=== PATIENT | female | born 1990 | race Caucasian/White ===

== ENCOUNTER 2016-06-04 07:37 | Emergency (ER) | payer OTHER ==
--- NOTE | 2016-06-04 09:55 | DIAGNOSTIC IMAGING REPORT ---
PROCEDURE: CT ABDOMEN/PELVIS W/O CONTRAST INDICATION: FLANK PAIN TECHNIQUE: Noncontrast axial images with sagittal and coronal reformations. COMPARISON: Compared CT abdomen and pelvis on 04/11/2015. FINDINGS: ABDOMEN: Mild left hydronephrosis and hydroureter, no evidence of obstructing calculus. Right kidney and ureter are normal. and ureters are normal. Moderate stool throughout the colon. Small bowel pattern is normal. Appendix appears normal. Cholecystectomy (surgical clips). Liver, spleen, pancreas, and aorta are normal. PELVIS: Moderate stool in the rectum and sigmoid colon. Uterus and adnexal structures are normal. No evidence of free fluid. IMPRESSION: 1. There is mild left hydronephrosis and hydroureter, but no evidence of obstructing calculus. Consider passed stone/calculus. 2. Moderate stool throughout the colon. Consider obstipation. 3. Status post cholecystectomy. 4. Findings discussed with Dr. Pablo Briones. All CT scans at this facility use dose modulation, iterative reconstruction, and/or weight-based dosing when appropriate to reduce radiation dose to as low as reasonably achievable.
--- NOTE | 2016-06-04 11:06 | ED ORDER SUMMARY ---
..... Patient: ELIE HARGROVE OrderSheet [facility] VisitID: [id number] [place] [address] 25y, F Registration Date/Time: 06/04/2016 ORDER SHEET Weight: 60.7 kg (stated) Allergies: Adhesive Tape GENERAL ORDERS: CBC w Diff Urgent (08:03 06/04/2016 Lety DAS) (8:06 DMaziarka R.N.) CMP Urgent (08:06/04/2016 Lety DAS) (8:06 DMaziarka R.N.) Amylase Urgent (08:06/04/2016 Lety DAS) (8:06 DMaziarka R.N.) Lipase Urgent (08:06/04/2016 Lety DAS) (8:06 DMaziarka R.N.) UA-Culture if indicated Urgent (08:06/04/2016 Lety DAS) (8:06 DMaziarka R.N.) Urine Urgent (08:03 06/04/2016 Lety DAS) (8:06 DMaziarka R.N.) Urine Drug Screen Urgent (08:03 06/04/2016 Lety DAS) (8:06 DMaziarka R.N.) CRP Urgent (08:06 06/04/2016 Lety DAS) (8:19 DMaziarka R.N.) PCT (Procalcitonin) Urgent (08:06 06/04/2016 Lety DAS) (8:19 DMaziarka R.N.) CT Abd/Pel wo Cont Urgent (08:07 06/04/2016 Lety DAS) (Ack 8:32 RKaruga) (10:03 DMaziarka R.N.) MEDICATION ORDERS: IV FLUIDS: IV NS : initial bolus none -, then 500 mL/hr for 4h (NOW); Routine (08:02 06/04/2016 Lety DAS) (8:05 DMaziarka R.N.) Toradol IV 30 mg (NOW) (08:06 06/04/2016 Lety DAS) (8:20 DMaziarka R.N.) Ativan IV 0.5 mg (NOW) (08:06 06/04/2016 Lety DAS) (8:20 DMaziarka R.N.) Zofran IV 4 mg (NOW) (08:07 06/04/2016 Lety DAS) (8:21 DMaziarka R.N.) Morphine IV 4 mg (once now. May repeat in 15 mintues for pain > 5/10 for total of 8 mg) (09:33 06/04/2016 Chang Mccarty) (Ack 10:04 DMaziarka R.N.) (10:10 DMaziarka R.N.) Ceftriaxone IV 1 gm/50mL (NOW) (10:28 06/04/2016 Chang Mccarty) (10:33 DMaziarka R.N.) ORDER SHEET NOTES: [Electronically signed by Zandra Atkins R.N. (11:31 06/04/2016)] [Electronically signed by Pablo Briones Dr. (09:34 06/05/2016)] [Electronically locked/signed by Zandra Atkins R.N. (11:31 06/04/2016)]
--- NOTE | 2016-06-04 11:06 | ED ORDER SUMMARY ---
..... Patient: ELIE HARGROVE OrderSheet [facility] VisitID: [id number] [place] [address] 25y, F Registration Date/Time: 06/04/2016 ORDER SHEET Weight: 60.7 kg (stated) Allergies: Adhesive Tape GENERAL ORDERS: CBC w Diff Urgent (08:03 06/04/2016 Lety DAS) (8:06 DMaziarka R.N.) CMP Urgent (08:06/04/2016 Lety DAS) (8:06 DMaziarka R.N.) Amylase Urgent (08:06/04/2016 Lety DAS) (8:06 DMaziarka R.N.) Lipase Urgent (08:06/04/2016 Lety DAS) (8:06 DMaziarka R.N.) UA-Culture if indicated Urgent (08:06/04/2016 Lety DAS) (8:06 DMaziarka R.N.) Urine Urgent (08:03 06/04/2016 Lety DAS) (8:06 DMaziarka R.N.) Urine Drug Screen Urgent (08:03 06/04/2016 Lety DAS) (8:06 DMaziarka R.N.) CRP Urgent (08:06 06/04/2016 Lety DAS) (8:19 DMaziarka R.N.) PCT (Procalcitonin) Urgent (08:06 06/04/2016 Lety DAS) (8:19 DMaziarka R.N.) CT Abd/Pel wo Cont Urgent (08:07 06/04/2016 Lety DAS) (Ack 8:32 RKaruga) (10:03 DMaziarka R.N.) MEDICATION ORDERS: IV FLUIDS: IV NS : initial bolus none -, then 500 mL/hr for 4h (NOW); Routine (08:02 06/04/2016 Lety DAS) (8:05 DMaziarka R.N.) Toradol IV 30 mg (NOW) (08:06 06/04/2016 Lety DAS) (8:20 DMaziarka R.N.) Ativan IV 0.5 mg (NOW) (08:06 06/04/2016 Lety DAS) (8:20 DMaziarka R.N.) Zofran IV 4 mg (NOW) (08:07 06/04/2016 Lety DAS) (8:21 DMaziarka R.N.) Morphine IV 4 mg (once now. May repeat in 15 mintues for pain > 5/10 for total of 8 mg) (09:33 06/04/2016 Chang Mccarty) (Ack 10:04 DMaziarka R.N.) (10:10 DMaziarka R.N.) Ceftriaxone IV 1 gm/50mL (NOW) (10:28 06/04/2016 Chang Mccarty) (10:33 DMaziarka R.N.) ORDER SHEET NOTES: [Electronically signed by Zandra Atkins R.N. (11:31 06/04/2016)] [Electronically signed by Pablo Briones Dr. (09:34 06/05/2016)] [Electronically locked/signed by Zandra Atkins R.N. (11:31 06/04/2016)]
--- NOTE | 2016-06-04 11:06 | ED NURSING NOTES ---
Clinical Report - Nurses [facility] [address] [place] [address] 06/04/2016 7:38 Patient: ELIE HARGROVE TRIAGE Triage time 07:45. Acuity: LEVEL 3. Chief Complaint: ABDOMINAL PAIN. Alert. No acute distress. SEPSIS SCREEN: Sepsis Screen. Infection suspected/documented. Heart rate greater than 90 and respiratory rate greater than 20. --07:55 Luna Lopes R.N. 07:48 06/04/16. BP: 118/80. HR: 92. RR: 24. O2 saturation: 99%. Temp: 98.0 F. Pain level now 11/13. --07:55 Luna Lopes R.N. Weight: 60.7 kg stated. Height/Length: 64 inches Per Patient. BMI: 23. --07:50 Luna Lopes R.N. Medications Dextroamphetamine Sulfate Oral (Tablet 10 mg) 1 tablet, BID . Imitrex Oral, PRN, last dose 0800 (n relief ). Linzess Oral 1 tab prn (for constipation ). Methocarbamol Oral 500 mg, 3x a day as needed, last dose 1 week ago. SEROquel Oral 200 mg, at bedtime. --07:52 Luna Lopes R.N. Allergies Adhesive Tape. --07:52 Luna Lopes R.N. History Arrived by private vehicle. Primary physician (ck). ( left lower back and left lower abd pain. Described as constant. States pain worsens upon bending over. States she has some frequency, burning and pain with urination). This started yesterday. 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 PAST MEDICAL HX: Last normal menstrual period- . 3. Denies current . SOCIAL HX: Heavy tobacco smoker (cigarette)- 1 pack per day. Occasional alcohol use. History of drug use: marijuana. ABUSE ASSESSMENT: Abuse assessment: The patient was asked "Do you feel safe in your home?". No report of abuse. FALL RISK ASSESSMENT: Fall risk assessment completed. No fall risk identified. NUTRITIONAL RISK ASSESSMENT: The nutritional risk assessment revealed no deficiencies. FUNCTIONAL ASSESSMENT: Functional assessment: no impairments noted. LEARNING NEEDS ASSESSMENT: The learning needs assessment revealed no barriers. SKIN INTEGRITY ASSESSMENT: Skin integrity risk assessment completed. No skin integrity risk identified. --07:55 Luna Lopes R.N. PROBLEMS: Constipation [Active]. --07:53 Luna Lopes R.N. UTI - Urinary Tract Infection. Diarrhea. Back Pain. Pharyngitis. URI. COPD - Chronic Obstructive Pulmonary Disease. Viral Disease. Pyelonephritis. Ureterolithiasis. Umbilical Hernia. Gallstone(s). Dental Pain. Headache. Abdominal Pain. Anxiety Reaction. Immunizations. Discomfort of . Active Labor. . --07:53 Luna Lopes R.N. ADDITIONAL SURGERIES: Cholecystectomy. Inguinal Hernia Repair. --07:53 Luna Lopes R.N. Interventions ID band on patient. To treatment room. --07:55 Luna Lopes R.N. PHYSICAL ASSESSMENT 07:55 06/04/16. Ambulatory to room. GENERAL / NEURO / PSYCH: Alert. Oriented X 4. Appears in pain and anxious. HEENT: Mucous membranes are pink. RESPIRATORY: Respirations not labored. CVS: Capillary refill less than 2 seconds. GI / : Abdomen soft. Abdominal tenderness in the left lower quadrant and lower abdomen. SKIN: Skin is warm and dry. --07:55 Luna Lopes R.N. NURSING PROGRESS NOTES 07:56 06/04/2016 Site #1 started via IV in the left forearm with an 18g angiocath, with aseptic technique and good blood return; one attempt. Blood drawn: rainbow set. Labeled in the presence of the patient and sent to the lab. Saline lock flushed with 10 mL saline. --07:56 Luna Lopes R.N. The plan of care for this patient has been created. Patient gowned. Head of bed elevated. Patient ID band checked for patient name and birthdate: patient confirmed. Instructions provided to collect clean catch urine and patient verbalized understanding. Clean catch urine collected with return of yellow-colored cloudy urine; sample sent to lab for urinalysis and culture. Specimen labeled in the presence of the patient. Call light placed in reach. Bed placed in lowest position. Brakes of bed on. Patient ready for evaluation- chart flagged. --07:57 Luna Lopes R.N. 08:05 06/04/2016 Started bag #1 1000 mL IV Fluids IV NS (Saline); at 500 mL/hr over 4 hour(s) via site #1 via IV pump. Allergies verified and confirmed 5 rights. IV patency established. IV site checked: no pain, redness, or swelling. IV flushed thoroughly pre- and post-medication administration. --08:05 Zandra Atkins R.N. 08:15 06/04/2016 Toradol IVP 30 mg given over 2 minute(s) via site #1. Allergies verified and confirmed 5 rights. IV patency established. IV site checked: no pain, redness, or swelling. IV flushed thoroughly pre- and post-medication administration. IVP given by RN. --08:20 Zandra Atkins R.N. 08:20 06/04/2016 Ativan (LORazepam) IVP 0.5 mg given over 2 minute(s) via site #1. Allergies verified, confirmed 5 rights and sedative warning given to the patient. IV patency established. IV site checked: no pain, redness, or swelling. IV flushed thoroughly pre- and post-medication administration. IVP given by RN. --08:20 Zandra Atkins R.N. 08:21 06/04/2016 Zofran (Ondansetron HCl) IVP 4 mg given over 2 minute(s) via site #1. Allergies verified and confirmed 5 rights. IV patency established. IV site checked: no pain, redness, or swelling. IV flushed thoroughly pre- and post-medication administration. IVP given by RN. --08:21 Zandra Atkins R.N. The patient is sleeping. --08:53 Zandra Atkins R.N. 10:10 06/04/2016 Morphine IVP 4 mg given over 2 minute(s) via site #1. Allergies verified, confirmed 5 rights and sedative warning given to the patient. IV patency established. IV site checked: no pain, redness, or swelling. IV flushed thoroughly pre- and post-medication administration. IVP given by RN. --10:10 Zandra Atkins R.N. 10:10 06/04/16. BP: 110/66. HR: 74. RR: 16. O2 saturation: 97%. Pain level now 11/13. --10:11 Zandra Atkins R.N. 10:33 06/04/2016 Started 1 gm of Ceftriaxone IVPB in bag #1 50 mL; at 200 mL/hr over 15 minute(s) via site #1 via IV pump. Allergies verified and confirmed 5 rights. IV patency established. IV site checked: no pain, redness, or swelling. IV flushed thoroughly pre- and post-medication administration. --10:33 Zandra Atkins R.N. DISPOSITION / DISCHARGE Departure time: 11:29. Condition at departure: improved. No learning barriers present. Discharge instructions provided and reviewed with the patient. Patient verbalized understanding. Written instructions provided in Bengali. The patient was discharged home and accompanied by folder taper operator. She left the Emergency Department ambulatory and via private vehicle. 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 --11:29 Zandra Atkins R.N. 11:28 06/04/16. BP: 122/72. HR: 84. RR: 16. O2 saturation: 98%. Pain level now 08/14. --11:29 Zandra Atkins R.N. Locked/Released at 06/04/2016 11:31 by Zandra Atkins R.N.
--- NOTE | 2016-06-04 11:06 | ED CLINICAL REPORT ---
Clinical Report - Physicians/Mid Levels [facility] [address] [place] [address] 06/04/2016 7:38 Patient: ELIE HARGROVE Time Seen: 08:01 Jun 04 2016. Arrived- By private vehicle. Historian- patient. HISTORY OF PRESENT ILLNESS Chief Complaint: ABDOMINAL PAIN. It is described as "pain", sharp and stabbing and it is described as located in the left side of the back. This started last night and is still present. At its maximum, severity described as moderate. When seen in the E.D., severity described as moderate. The patient has had nausea. REVIEW OF SYSTEMS No fever, chest pain or difficulty breathing. All systems otherwise negative, except as recorded above. PAST HISTORY See nurses notes. Constipation [Active]. UTI - Urinary Tract Infection. Diarrhea. Back Pain. Pharyngitis. URI. COPD - Chronic Obstructive Pulmonary Disease. Viral Disease. Pyelonephritis. Ureterolithiasis. Umbilical Hernia. Gallstone(s). Dental Pain. Headache. Abdominal Pain. Anxiety Reaction. Immunizations. Discomfort of . Active Labor. . ADDITIONAL SURGERIES: Cholecystectomy. Inguinal Hernia Repair. SOCIAL HISTORY Smoker- current status unknown. Alcohol use. History of occasional drug use: marijuana. Is a local resident. ADDITIONAL NOTES The nursing notes have been reviewed. PHYSICAL EXAM Vital Signs: 06/04/2016 07:48 BP: 118/80. HR: 92. RR: 24. O2 saturation: 99%. Temp: 98.0 F. Appearance: Alert. No acute distress. Eyes: Eyes normal inspection. ENT: Pharynx normal. Neck: Normal inspection. CVS: Normal heart rate and rhythm. Heart sounds normal. Pulses normal. Respiratory: No respiratory distress. Breath sounds normal. Chest nontender. Abdomen: Soft. Mild tenderness in the left lower quadrant. Bowel sounds normal. No mass. Back: No CVA tenderness. (tender left , L5 parlumbar soft tissue. SLR left 10 degrees.). Skin: Skin warm. Normal skin color. No rash. Extremities: Extremities exhibit normal ROM. No calf tenderness. No lower extremity edema. Neuro: Oriented X 3. No motor deficit. No sensory deficit. Reflexes normal. LABS, X-RAYS, AND EKG Abdominal CT: PROCEDURE: CT ABDOMEN/PELVIS W/O CONTRAST INDICATION: FLANK PAIN TECHNIQUE: Noncontrast axial images with sagittal and coronal reformations. COMPARISON: Compared CT abdomen and pelvis on 04/11/2015. FINDINGS: ABDOMEN: Mild left hydronephrosis and hydroureter, no evidence of obstructing calculus. Right kidney and ureter are normal. and ureters are normal. Moderate stool throughout the colon. Small bowel pattern is normal. Appendix appears normal. Cholecystectomy (surgical clips). Liver, spleen, pancreas, and aorta are normal. PELVIS: Moderate stool in the rectum and sigmoid colon. Uterus and adnexal structures are normal. No evidence of free fluid. IMPRESSION: 1. There is mild left hydronephrosis and hydroureter, but no evidence of obstructing calculus. Consider passed stone/calculus. 2. Moderate stool throughout the colon. Consider obstipation. 3. Status post cholecystectomy. Study type: abdomen and pelvis. Abdominal CT performed without contrast. Abdominal CT performed without contrast. The study was independently viewed by me, interpreted by the radiologist and discussed with the radiologist. Laboratory Tests: UA-Culture if indicated: (CARLA: 06/04/2016 08:00) ( MsgRcvd 06/04/2016 09:16) Final results Test Result Flag Units (Reference) URINE COLOR YELLOW URINE APPEARANCE CLEAR URINE GLUCOSE NEGATIVE (NEGATIVE) URINE BILIRUBIN NEGATIVE (NEGATIVE) URINE KETONE NEGATIVE (NEGATIVE) URINE SPECIFIC GRAVITY 1.015 (1.010-1.030) URINE PH 5.5 (5.0-8.0) URINE PROTEIN 1+ (NEGATIVE) URINE UROBILINOGEN 0.2 EU/dL (0.2-1.0) URINE NITRITE NEGATIVE (NEGATIVE) URINE BLOOD 3+ (NEGATIVE) URINE LEUK ESTERASE POSITIVE (NEGATIVE) URINE RBC 25-50 rbc/hpf (0-1) URINE WBC 0-1 wbc/hpf (0-1) URINE EPITHELIAL CELLS 0-1 EPI/hpf (0-5) URINE BACTERIA FEW (1+) (NONE SEEN) URINE COMMENT CULTURE INDICATED URINE CULTURES ARE SET-UP BASED ON THE FOLLOWING CRITERIA:POSITIVE NITRITEPOSITIVE LEUKOCYTE ESTERASEGREATER THAN 10 WHITE BLOOD CELLSMODERATE (2+) OR GREATER BACTERIA Urine: (CARLA: 06/04/2016 08:00) ( [facility] 06/04/2016 08:15) Final results Test Result Flag Units (Reference) URINE NEGATIVE CBC w Diff: (CARLA: 06/04/2016 08:00) ( [facility] 06/04/2016 08:10) Final results Test Result Flag Units (Reference) WHITE BLOOD COUNT 17.2 H K/uL (4.5-11.5) RED BLOOD COUNT 4.64 M/uL (4.00-5.20) HEMOGLOBIN 14.0 gm/dL (12.0-16.0) HEMATOCRIT 41.8 % (36.0-46.0) MEAN CELL VOLUME 90 fL (80-100) MEAN CORPUSCULAR HGB 30 pg (26-34) MEAN CORPUSCULAR HGB CONC 33 g/dL (31-37) RED CELL DISTRIBUTION WIDTH 14.2 % (11.6-14.8) PLATELET COUNT 312 K/uL (150-400) NEUTROPHIL % 78.8 H % (50-75) LYMPH % 14.2 L % (25-40) MONO % 6.1 % (3-14) EOSINOPHIL % 0.2 % (0-4) BASOPHIL % 0.7 % (0-2) [id number]: (CARLA: 06/04/2016 08:16) ( [facility] 06/04/2016 08:46) Final results Test Result Flag Units (Reference) C-REACTIVE PROTEIN 1.5 H mg/dL (0.0-0.9) [id number]: (CARLA: 06/04/2016 08:16) ( [facility] 06/04/2016 09:14) Final results Test Result Flag Units (Reference) PROCALCITONIN <0.5 ng/mL (0-0.5) PCT Concentration: Interpretation : Risk/option for action PCT <=0.5 ng/mL : Systemic : Low risk forinfection(sepsis): progression to severeis not likely. : systemic infection.Local bacterial : CAUTION-PCT levelsinfection is : below 0.5 ng/mL do notpossible. : exclude an infection,because localizedinfections (withoutsystemic signs) may beassociated with suchlow levels. If PCT ismeasured very earlyafter a bacterialchallenge (usually <6hours), these valuesmay still be low. Inthis case PCT shouldbe re-assessed 6-24hours later. PCT >0.5 and : Systemic infection: Moderate risk for<= 2 ng/mL : (sepsis) is : progression to severepossible, but : systemic infection.other conditions : The patient should beare known to : closely monitoredelevate PCT. : both clinically andby re-assessing PCTwithin 6-24 hours. PCT > 2 ng/mL : Systemic infection: High risk for(sepsis) is likely: progression to severeunless other : systemic infection.causes are known. : PCT >= 10 ng/mL : Important systemic: High likelihood ofinflammatory : severe sepsis orresponse, almost : septic shock.exclusively due to:severe bacterial :sepsis or septic :shock. : Urine Drug Screen: (CARLA: 06/04/2016 08:00) ( MsgRcvd 06/04/2016 08:24) Final results Test Result Flag Units (Reference) AMPHETAMINE/METHAMPHETAMINE NEGATIVE (NEGATIVE) BARBITURATE NEGATIVE (NEGATIVE) BENZODIAZEPINE NEGATIVE (NEGATIVE) CANNABINOID POSITIVE H (NEGATIVE) COCAINE NEGATIVE (NEGATIVE) ECSTASY NEGATIVE (NEGATIVE) METHADONE NEGATIVE (NEGATIVE) OPIATE NEGATIVE (NEGATIVE) The urine drug screen is a qualitative screening test fordrug overdose and abuse. All screen results should beconsidered as presumptive.Drugs screened for are as follows:BenzodiazepinesCocaineAmphetamines/MetamphetaminesTHC (Tetrahydrocannabinol)OpiatesBarbituratesEcstasyMethadonePositive results are unconfirmed. For confirmation, notifythe lab for the specimen to be sent to the reference lab.All confirmations must be performed by a differentmethodology.The ingestion of natural herbal and plant productscontaining Ephedra/Ephedra metabolites can produce in urineone or more substances capable of cross reacting withamphetamine/methamphetamine immunoassays. These testsprovide a preliminary result only. A more specificalternative chemical method must be used to obtain aconfirmed analytical result. CMP: (CARLA: 06/04/2016 08:00) ( MsgRcvd 06/04/2016 09:00) Final results Test Result Flag Units (Reference) GLUCOSE 109 mg/dL (70-110) BUN 10 mg/dL (7-18) CREATININE 0.7 mg/dL (0.6-1.3) Estimated GFR >60 mL/min Estimated GFR- >60 mL/min Note: Persistent reduction over 3 months in eGFR<60 mL/min/1.73 m2 defines CKD. Patients with eGFR values>=60 mL/min/1.73 m2 may also have CKD if evidence ofpersistent proteinuria. Additional information may be foundat www.kidney.org. SODIUM 143 mmol/L (136-145) POTASSIUM 4.0 mmol/L (3.5-5.1) CHLORIDE 108 H mmol/L (98-107) CARBON DIOXIDE 26 mmol/L (21-32) CALCIUM 8.2 L mg/dL (8.5-10.1) TOTAL PROTEIN 6.7 g/dL (6.4-8.2) ALBUMIN 3.2 L g/dL (3.3-5.0) BILIRUBIN, TOTAL 0.2 mg/dL (0.0-1.0) ALKALINE PHOSPHATASE 66 U/L (46-116) AST (SGOT) 11 L U/L (15-37) ALT (SGPT) 13 U/L (12-78) LIPASE 125 U/L (73-393) AMYLASE 19 L U/L (25-115) Culture, Urine: (CARLA: 06/04/2016 08:00) ( MsgRcvd 06/05/2016 09:23) IP Test Result Flag Units (Reference) CULTURE, URINE DATE: 06/05/16 PRELIM REPORT: PRELIMINARY REPORT #1 -- GNR QUANTITATIVE URINE GROWTH: GREATER THAN 100,000 CFU/mL ID AND SENS TO FOLLOW: IDENTIFICATION AND SENSITIVITY TO FOLLOW . PROGRESS AND PROCEDURES Course of Care: the patient is a pleasant 25-year-old female with no significant past medical history presenting for rehydration of abdominal pain. The patient was evaluated by the ongoing physician. I'm taking over the patient's case at the change of shift. Plan is to follow up with the patient's laboratory studies as well as CT scan. Patient is nontoxic and in no acute distress. patient reported that the pain medication that she received earlier helped slightly. Patient reports that it is coming back however. Another dose of pain medication as been ordered. The patient's workup was remarkable for the findings above. Patient with flank pain and positive urinalysis significant for urinary tract infection. Patient does have an elevated CRP however patient does not have any midline tenderness. Do not feel patient has spinal epidural abscess or osteomyelitis/discitis. The patient is nontoxic and in no acute distress. No fever reported. Neurological examcontinues to be intact and normal. The rest of the patient's workup was otherwise unremarkable. An box provided here in the emergency department. Upon reevaluation after antibiotic sgiven, Patient continues to be in no acute distress.. Discussed with the patient workup, diagnosis, home care, follow-up, and return precautions. All questions answered. The patient expressed understanding of these instructions and was agreeable. Patient is stable outpatient candidate. Do not feel patient needs to be admitted to the hospital or require further emergency Department evaluation/workup. Disposition: Discharged. Condition: good. CLINICAL IMPRESSION Left renal colic with hydronephrosis and urinary tract infection. Acute pyelonephritis (left sided). INSTRUCTIONS Warnings: GENERAL WARNINGS: Return or contact your physician immediately if your condition worsens or changes unexpectedly, if not improving as expected, or if other problems arise. SPECIFICALLY, return if you develop pain, fever, vomiting, the inability to keep fluids down, blood in vomitus, blood in diarrhea, fainting, lightheadedness or vaginal bleeding. Your Current Medications: CONTINUE TAKING THE FOLLOWING MEDICATIONS: Dextroamphetamine Sulfate Oral : Tablet 10 mg, 1 tablet BID. Imitrex Oral : PRN, Last: 0800, n relief. Linzess Oral : 1 tab prn, for constipation. Methocarbamol Oral : 500 mg 3x a day, Last: 1 week ago, prn. SEROquel Oral : 200 mg at bedtime. Prescription Medications: Zofran (orally disintegrating tablets) 4 mg: take 1 orally every 8 hours as needed for nausea and vomiting. Dispense ten (10). No refill. Substitution is permissible. Pocahontas 5 mg / 325 mg tablets: take 1 orally every 6 hours as needed for pain. Dispense twelve (12). No refill. Substitution is permissible. Keflex 500 mg: take 1 capsule orally every 8 hours for 10 days. No refill. Substitution is permissible. (disp 30 caps) Motrin 600 mg tablets: take 1 tablet orally every 6 hours as needed for pain, stiffness, swelling or fever. Dispense thirty (30). No refill. Substitution is permissible. Follow-up: Return to the emergency department as needed. Follow up with your doctor in three days. Reason for referral: recheck today's concerns. Summary of care provided to patient via paper. Screening today revealed the patient's blood pressure to be in the normal range. The patient should follow up with a primary care provider for blood pressure management. Understanding of the discharge instructions verbalized by patient. (Electronically signed by Pablo Briones Dr. 06/05/2016 9:34)
--- NOTE | 2016-06-04 11:06 | ED NURSING NOTES ---
Clinical Report - [facility] [address] [place] [address] 06/04/2016 7:38 Patient: ELIE HARGROVE TRIAGE Triage time 07:45. Acuity: LEVEL 3. Chief Complaint: ABDOMINAL PAIN. Alert. No acute distress. SEPSIS SCREEN: Sepsis Screen. Infection suspected/documented. Heart rate greater than 90 and respiratory rate greater than 20. --07:55 Luna Lopes R.N. 07:48 06/04/16. BP: 118/80. HR: 92. RR: 24. O2 saturation: 99%. Temp: 98.0 F. Pain level now 11/13. --07:55 Luna Lopes R.N. Weight: 60.7 kg stated. Height/Length: 64 inches Per Patient. BMI: 23. --07:50 uLna Lopes R.N. Medications Dextroamphetamine Sulfate Oral (Tablet 10 mg) 1 tablet, BID . Imitrex Oral, PRN, last dose 0800 (n relief ). Linzess Oral 1 tab prn (for constipation ). Methocarbamol Oral 500 mg, 3x a day as needed, last dose 1 week ago. SEROquel Oral 200 mg, at bedtime. --07:52 Luna Lopes R.N. Allergies Adhesive Tape. --07:52 Luna Lopes R.N. History Arrived by private vehicle. Primary physician (ck). ( left lower back and left lower abd pain. Described as constant. States pain worsens upon bending over. States she has some frequency, burning and pain with urination). This started yesterday. 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 PAST MEDICAL HX: Last normal menstrual period- . 3. Denies current . SOCIAL HX: Heavy tobacco smoker (cigarette)- 1 pack per day. Occasional alcohol use. History of drug use: marijuana. ABUSE ASSESSMENT: Abuse assessment: The patient was asked "Do you feel safe in your home?". No report of abuse. FALL RISK ASSESSMENT: Fall risk assessment completed. No fall risk identified. NUTRITIONAL RISK ASSESSMENT: The nutritional risk assessment revealed no deficiencies. FUNCTIONAL ASSESSMENT: Functional assessment: no impairments noted. LEARNING NEEDS ASSESSMENT: The learning needs assessment revealed no barriers. SKIN INTEGRITY ASSESSMENT: Skin integrity risk assessment completed. No skin integrity risk identified. --07:55 Luna Lopes R.N. PROBLEMS: Constipation [Active]. --07:53 Luna Lopes R.N. UTI - Urinary Tract Infection. Diarrhea. Back Pain. Pharyngitis. URI. COPD - Chronic Obstructive Pulmonary Disease. Viral Disease. Pyelonephritis. Ureterolithiasis. Umbilical Hernia. Gallstone(s). Dental Pain. Headache. Abdominal Pain. Anxiety Reaction. Immunizations. Discomfort of . Active Labor. . --07:53 Luna Lopes R.N. ADDITIONAL SURGERIES: Cholecystectomy. Inguinal Hernia Repair. --07:53 Luna Lopes R.N. Interventions ID band on patient. To treatment room. --07:55 Luna Lopes R.N. PHYSICAL ASSESSMENT 07:55 06/04/16. Ambulatory to room. GENERAL / NEURO / PSYCH: Alert. Oriented X 4. Appears in pain and anxious. HEENT: Mucous membranes are pink. RESPIRATORY: Respirations not labored. CVS: Capillary refill less than 2 seconds. GI / : Abdomen soft. Abdominal tenderness in the left lower quadrant and lower abdomen. SKIN: Skin is warm and dry. --07:55 Luna Lopes R.N. NURSING PROGRESS NOTES 07:56 06/04/2016 Site #1 started via IV in the left forearm with an 18g angiocath, with aseptic technique and good blood return; one attempt. Blood drawn: rainbow set. Labeled in the presence of the patient and sent to the lab. Saline lock flushed with 10 mL saline. --07:56 Luna Lopes R.N. The plan of care for this patient has been created. Patient gowned. Head of bed elevated. Patient ID band checked for patient name and birthdate: patient confirmed. Instructions provided to collect clean catch urine and patient verbalized understanding. Clean catch urine collected with return of yellow-colored cloudy urine; sample sent to lab for urinalysis and culture. Specimen labeled in the presence of the patient. Call light placed in reach. Bed placed in lowest position. Brakes of bed on. Patient ready for evaluation- chart flagged. --07:57 Luna Lopes R.N. 08:05 06/04/2016 Started bag #1 1000 mL IV Fluids IV NS (Saline); at 500 mL/hr over 4 hour(s) via site #1 via IV pump. Allergies verified and confirmed 5 rights. IV patency established. IV site checked: no pain, redness, or swelling. IV flushed thoroughly pre- and post-medication administration. --08:05 Zandra Atkins R.N. 08:15 06/04/2016 Toradol IVP 30 mg given over 2 minute(s) via site #1. Allergies verified and confirmed 5 rights. IV patency established. IV site checked: no pain, redness, or swelling. IV flushed thoroughly pre- and post-medication administration. IVP given by RN. --08:20 Zandra Atkins R.N. 08:20 06/04/2016 Ativan (LORazepam) IVP 0.5 mg given over 2 minute(s) via site #1. Allergies verified, confirmed 5 rights and sedative warning given to the patient. IV patency established. IV site checked: no pain, redness, or swelling. IV flushed thoroughly pre- and post-medication administration. IVP given by RN. --08:20 Zandra Atkins R.N. 08:21 06/04/2016 Zofran (Ondansetron HCl) IVP 4 mg given over 2 minute(s) via site #1. Allergies verified and confirmed 5 rights. IV patency established. IV site checked: no pain, redness, or swelling. IV flushed thoroughly pre- and post-medication administration. IVP given by RN. --08:21 Zandra Atkins R.N. The patient is sleeping. --08:53 Zandra Atkins R.N. 10:10 06/04/2016 Morphine IVP 4 mg given over 2 minute(s) via site #1. Allergies verified, confirmed 5 rights and sedative warning given to the patient. IV patency established. IV site checked: no pain, redness, or swelling. IV flushed thoroughly pre- and post-medication administration. IVP given by RN. --10:10 Zandra Atkins R.N. 10:10 06/04/16. BP: 110/66. HR: 74. RR: 16. O2 saturation: 97%. Pain level now 11/13. --10:11 Zandra Atkins R.N. 10:33 06/04/2016 Started 1 gm of Ceftriaxone IVPB in bag #1 50 mL; at 200 mL/hr over 15 minute(s) via site #1 via IV pump. Allergies verified and confirmed 5 rights. IV patency established. IV site checked: no pain, redness, or swelling. IV flushed thoroughly pre- and post-medication administration. --10:33 Zandra Atkins R.N. DISPOSITION / DISCHARGE Departure time: 11:29. Condition at departure: improved. No learning barriers present. Discharge instructions provided and reviewed with the patient. Patient verbalized understanding. Written instructions provided in Maltese. The patient was discharged home and accompanied by drier take off tender. She left the Emergency Department ambulatory and via private vehicle. [employer] driving. --11:29 Zandra Atkins R.N. 11:28 06/04/16. BP: 122/72. HR: 84. RR: 16. O2 saturation: 98%. Pain level now 08/14. --11:29 Zandra Atkins R.N. Locked/Released at 06/04/2016 11:31 by Zandra Atkins R.N.
--- NOTE | 2016-06-05 09:35 | ED MED RECONCILIATION SUMMARY ---
Patient: ELIE HARGROVE Medication Reconciliation Report [facility] VisitID: [id number] [place] [address] 25y, F Registration Date/Time: 06/04/2016 Weight: 60.7 kg Height/Length: 64 in. BMI: 23.0 ALLERGIES: Adhesive Tape The patient's Home Medications are listed below: CONTINUE TAKING THE FOLLOWING MEDICATIONS: Dextroamphetamine Sulfate Oral (10 mg) 1 tablet, BID Imitrex Oral, PRN, last dose: 0800, n relief Linzess Oral 1 tab prn , for constipation Methocarbamol Oral 500 mg, 3x a day, last dose: 1 week ago SEROquel Oral 200 mg, at bedtime The source(s) of the original Home Medication information: Not obtained. The following Medications were given to the patient in the Emergency Department: IV NS IV Fluids bolus 0, then 500 mL/hr, administered: 06/04/2016 8:05:00 AM Toradol [IVP] IVP 30 mg, administered: 06/04/2016 8:15:00 AM Ativan [IVP] IVP 0.5 mg, administered: 06/04/2016 8:20:00 AM Zofran [IVP] IVP 4 mg, administered: 06/04/2016 8:21:00 AM Morphine [IVP] IVP 4 mg, administered: 06/04/2016 10:10:00 AM Ceftriaxone [IVPB] IVPB bolus 0, then 1 gm 200 mL/hr, administered: 06/04/2016 10:33:00 AM The following Medications were prescribed to the patient: Zofran (orally disintegrating tablets) 4 mg: take 1 orally every 8 hours as needed for nausea and vomiting. Dispense ten (10). No refill. Substitution is permissible. -- Pablo Briones Dr. Carmen 5 mg / 325 mg tablets: take 1 orally every 6 hours as needed for pain. Dispense twelve (12). No refill. Substitution is permissible. -- Pablo Briones Dr. Keflex 500 mg: take 1 capsule orally every 8 hours for 10 days. No refill. Substitution is permissible.(disp 30 caps) -- Pablo Briones Dr. Motrin 600 mg tablets: take 1 tablet orally every 6 hours as needed for pain, stiffness, swelling or fever. Dispense thirty (30). No refill. Substitution is permissible. -- Pablo Briones Dr.
--- NOTE | 2016-06-05 09:35 | ED DISCHARGE INSTRUCTIONS ---
Patient: ELIE HARGROVE General Instructions [facility] VisitID: [id number] [place] [address] 25y, F Registration Date/Time: 06/04/2016 Left renal colic with hydronephrosis and urinary tract infection. Acute pyelonephritis (left sided). INSTRUCTIONS Warnings: GENERAL WARNINGS: Return or contact your physician immediately if your condition worsens or changes unexpectedly, if not improving as expected, or if other problems arise. SPECIFICALLY, return if you develop pain, fever, vomiting, the inability to keep fluids down, blood in vomitus, blood in diarrhea, fainting, lightheadedness or vaginal bleeding. Your Current Medications: CONTINUE TAKING THE FOLLOWING MEDICATIONS: Dextroamphetamine Sulfate Oral : Tablet 10 mg, 1 tablet BID. Imitrex Oral : PRN, Last: 0800, n relief. Linzess Oral : 1 tab prn, for constipation. Methocarbamol Oral : 500 mg 3x a day, Last: 1 week ago, prn. SEROquel Oral : 200 mg at bedtime. Prescription Medications: Zofran (orally disintegrating tablets) 4 mg: take 1 orally every 8 hours as needed for nausea and vomiting. Dispense ten (10). No refill. Substitution is permissible. [place] 5 mg / 325 mg tablets: take 1 orally every 6 hours as needed for pain. Dispense twelve (12). No refill. Substitution is permissible. Keflex 500 mg: take 1 capsule orally every 8 hours for 10 days. No refill. Substitution is permissible. (disp 30 caps) Motrin 600 mg tablets: take 1 tablet orally every 6 hours as needed for pain, stiffness, swelling or fever. Dispense thirty (30). No refill. Substitution is permissible. Follow-up: Return to the emergency department as needed. Follow up with your doctor in three days. Reason for referral: recheck today's concerns. Summary of care provided to patient via paper. Screening today revealed the patient's blood pressure to be in the normal range. The patient should follow up with a primary care provider for blood pressure management. Understanding of the discharge instructions verbalized by patient. ADDITIONAL INFORMATION Kidney Stone, Passed A kidney stone begins as tiny crystals that form inside the kidney where urine is made. Most kidney stones enlarge to about 1/8" to 1/4" in size before leaving the kidney and moving toward the bladder.While the stone remains in the kidney, it causes no symptoms. The sharp cramping pain and nausea/vomiting that you hadwas due to the stone moving through the ureter (the narrow tube joining the kidney to the bladder).Once the stone reaches your bladder, the pain stops. Home Care: Drink plenty of fluids. This increases urine flow and reduces the chance that a new stone will form. Healthy adults (no heart/liver/kidney disease) who have had a kidney stone should drink 2-3 quarts (8-12 eight-ounce glasses) of fluids per day. Most of this should be water. The goal is to produce 1.5 to 2 quarts of almost colorless urine per 24 hours. Unless another NSAID (non-steroidal anti-inflammatory drug) was prescribed, you may take ibuprofen (Motrin, Advil) or naproxen (Aleve) in addition to any narcotic pain medicine prescribed by your doctor for recurrent pain. [NOTE: If you have chronic liver or kidney disease or ever had a stomach ulcer or GI bleeding, talk with your doctor before using these medicines.] Collecting the stone: If you were given a strainer, urinate into a jar then pour the urine through the strainer and into the toilet. Continue this for 24-hours after your pain stops. Save any stone that you find in the strainer and bring it to your doctor for analysis. If you do not collect a stone, a 24 hour urine specimen can be obtained at a later time by your doctor, to determine the cause of your stone. Prevention: Each year, there is a 5-10% chance that a new stone will form (50% chance over the next 10 years).The risk is highest if you have a family history of kidney stones or have certain chronic illnesses such as diabetes.However, there are lifestyle and dietary changes that you can follow to reduce the risk of a recurrence. Most kidney stones are made of calcium. The following is advice for preventing a recurrence of calcium stones.If you dont know the type of stone you have, follow this advice, until the cause of your stone is determined. Things That Help: The most important thing you can do is to drink plenty of fluids each day, as described above (#1). Certain foods such as wheat, rice, rye, barley and beans contain phytate, a compound may lower the risk of recurrence of any type of stone. Increase the amounts of fruits and vegetables (especially those high in potassium). Things To Limit Or Avoid: Calcium supplements may increase your risk of calcium stones. If you are taking these, talk to your doctor about the risks and benefits of continuing this treatment.[Note: There is no need to limit the amount of calcium in the foods you eat (such as milk and dairy products)]. Limit salt intake to 2-3 grams (1 to 1.5 teaspoons) per day. Use limited amounts when cooking, and dont add salt at the table. Limit spinach, rhubarb, peanuts, cashews and almonds, grapefruit and grapefruit juice. Reducing the amount of animal meat in your diet may lower your risk. Women should avoid excess sugar (sucrose) and fructose (sweetener in many soft drinks) in their diet. If you take vitamin C as a supplement, do not take more than 1,000 mg per day. Follow Up with your doctor or as advised by our staff. Even if you don t collect the kidney stone, it is possible to analyze a 24 hour urine collection for the cause of this stone. Follow up with your doctor for this. [NOTE: If you had an x-ray or CT scan, it will be reviewed by a specialist. You will be notified of any new findings that may affect your care.] Get Prompt Medical Attention if any of the following occur: Severe pain that returns and not relieved by pain medicines Repeated vomiting or unable to keep down fluids Weakness, dizziness or fainting Fever of 100.4F (38C) or higher, or as directed by your healthcare provider Blood clotsin urine Unable to pass urine for 8 hours or increasing bladder pressure Kidney Infection [Adult, Female] An infection of the kidney is also called "pyelonephritis". It usually starts as a bladder infection ("cystitis") which spreads to the kidneys. Pyelonephritis is more serious than a bladder infection. It can cause severe illness if not treated properly. The usual symptoms include an aching pain in the back, side or lower abdomen. Other symptoms may include fever, chills, nausea, vomiting, an urge to urinate and a burning sensation when passing urine. Home Care: Stay home from work or school. Rest in bed until your fever breaks and you are feeling better. Drink lots of fluid (at least 6-8 glasses a day, unless you must restrict fluids for other medical reasons). This will force the medicine into your urinary system and flush the bacteria out of your body. Avoid sexual intercourse until you have finished all of your medicine and your symptoms have gone away. Avoid caffeine, alcohol and spicy foods which may irritate the kidney and bladder. You may use acetaminophen (Tylenol) or ibuprofen (Motrin, Advil) to control pain, unless another pain medicine was prescribed. [NOTE: If you have chronic liver or kidney disease or ever had a stomach ulcer or GI bleeding, talk with your doctor before using these medicines.] Follow Up with your doctor or as advised by our staff for a repeat urine test in 10 days. This will ensure that your infection is fully cleared. [NOTE: If you had an X-ray or CT scan, it will be reviewed by a specialist. You will be notified of any new findings that may affect your care.] Get Prompt Medical Attention if any of the following occur: Fever over 100.4F (38.0C) after 48 hours of treatment No improvement by the third day of treatment Increasing back or abdominal pain Repeated vomiting or inability to take oral medicine Weakness, dizziness or fainting Blood In The Urine Blood in the urine ("hematuria") has many possible causes. If it occurs after an injury (such as a car accident or fall), it is most often a sign of bruising to the kidney or bladder. Common medical causes of blood in the urine include urinary tract infection, kidney stone, inflammation, tumors, or certain other diseases of the kidney or bladder. Menstruation can cause blood to appear in the urine sample, although it is not coming from the urinary tract. If only a trace amount of blood is present, it will show up on the urine test, even though the urine may be yellow and not pink or red. This may occur with any of the above conditions, as well as heavy exercise or high fever. In this case, your doctor may want to repeat the urine test on another day. This will show if the blood is still present. If so, then other tests can be done to find out the cause. Home Care: If your urine does not appear bloody (pink, brown or red) then you do not need to restrict your activity in any way. If you can see blood in your urine, rest and avoid heavy exertion until your next exam. Do not use aspirin or anti-inflammatory medicine like ibuprofen (Motrin, Advil) or naproxen (Naprosyn, Aleve). These thin the blood and may increase bleeding. Follow Up with your doctor or as advised by our staff. If you were injured and had blood in your urine, you should have a repeat urine test in 1-2 days. Contact your doctor or return to this facility for this test. [NOTE: A radiologist will review any X-rays that were taken. We will notify you of any new findings that may affect your care.] Get Prompt Medical Attention if any of the following occur: Bright red blood or blood clots in the urine (if a new symptom) Weakness, dizziness or fainting New groin, abdominal or back pain Fever of 100.4F (38C) or higher, or as directed by your healthcare provider Repeated vomiting Bleeding from nose, gums or easy bruising Kidney Infection [Adult, Female] An infection of the kidney is also called "pyelonephritis". It usually starts as a bladder infection ("cystitis") which spreads to the kidneys. Pyelonephritis is more serious than a bladder infection. It can cause severe illness if not treated properly. The usual symptoms include an aching pain in the back, side or lower abdomen. Other symptoms may include fever, chills, nausea, vomiting, an urge to urinate and a burning sensation when passing urine. Home Care: Stay home from work or school. Rest in bed until your fever breaks and you are feeling better. Drink lots of fluid (at least 6-8 glasses a day, unless you must restrict fluids for other medical reasons). This will force the medicine into your urinary system and flush the bacteria out of your body. Avoid sexual intercourse until you have finished all of your medicine and your symptoms have gone away. Avoid caffeine, alcohol and spicy foods which may irritate the kidney and bladder. You may use acetaminophen (Tylenol) or ibuprofen (Motrin, Advil) to control pain, unless another pain medicine was prescribed. [NOTE: If you have chronic liver or kidney disease or ever had a stomach ulcer or GI bleeding, talk with your doctor before using these medicines.] Follow Up with your doctor or as advised by our staff for a repeat urine test in 10 days. This will ensure that your infection is fully cleared. [NOTE: If you had an X-ray or CT scan, it will be reviewed by a specialist. You will be notified of any new findings that may affect your care.] Get Prompt Medical Attention if any of the following occur: Fever over 100.4F (38.0C) after 48 hours of treatment No improvement by the third day of treatment Increasing back or abdominal pain Repeated vomiting or inability to take oral medicine Weakness, dizziness or fainting Ondansetron Oral disintegrating tablet What is this medicine? ONDANSETRON (on MARTHA se ian) is used to treat nausea and vomiting caused by chemotherapy. It is also used to prevent or treat nausea and vomiting after surgery. How should I use this medicine? These tablets are made to dissolve in the mouth. Do not try to push the tablet through the foil backing. With dry hands, peel away the foil backing and gently remove the tablet. Place the tablet in the mouth and allow it to dissolve, then swallow. While you may take these tablets with water, it is not necessary to do so. Talk to your dispatcher refinery regarding the use of this medicine in children. Special care may be needed. What side effects may I notice from receiving this medicine? Side effects that you should report to your doctor or health manager critical care as soon as possible: allergic reactions like skin rash, itching or hives, swelling of the face, lips, or tongue breathing problems dizziness fast or irregular heartbeat feeling faint or lightheaded, falls fever and chills swelling of the hands and feet tightness in the chest Side effects that usually do not require medical attention (report to your doctor or health manager critical care if they continue or are bothersome): constipation or diarrhea headache What may interact with this medicine? Do not take this medicine with any of the following medications: -apomorphine -cisapride -dofetilide -dronedarone -pimozide -thioridazine -ziprasidone This medicine may also interact with the following medications: -carbamazepine -phenytoin -rifampicin -tramadol -other medicines that prolong the QT interval (cause an abnormal heart rhythm) What if I miss a dose? If you miss a dose, take it as soon as you can. If it is almost time for your next dose, take only that dose. Do not take double or extra doses. Where should I keep my medicine? Keep out of the reach of children. Store between 2 and 30 degrees C (36 and 86 degrees F). Throw away any unused medicine after the expiration date. What should I tell my health care provider before I take this medicine? They need to know if you have any of these conditions: heart disease history of irregular heartbeat liver disease low levels of magnesium or potassium in the blood an unusual or allergic reaction to ondansetron, granisetron, other medicines, foods, dyes, or preservatives or trying to get breast-feeding What should I watch for while using this medicine? Check with your doctor or health manager critical care as soon as you can if you have any sign of an allergic reaction. Hydrocodone Bitartrate, Acetaminophen Oral tablet What is this medicine? ACETAMINOPHEN; HYDROCODONE (a set a YELITZA nam fen; claudia droe KOE done) is a pain reliever. It is used to treat mild to moderate pain. How should I use this medicine? Take this medicine by mouth. Swallow it with a full glass of water. Follow the directions on the prescription label. If the medicine upsets your stomach, take the medicine with food or milk. Do not take more than you are told to take. Talk to your dispatcher refinery regarding the use of this medicine in children. This medicine is not approved for use in children. What side effects may I notice from receiving this medicine? Side effects that you should report to your doctor or health manager critical care as soon as possible: allergic reactions like skin rash, itching or hives, swelling of the face, lips, or tongue breathing problems confusion feeling faint or lightheaded, falls stomach pain yellowing of the eyes or skin Side effects that usually do not require medical attention (report to your doctor or health manager critical care if they continue or are bothersome): nausea, vomiting stomach upset What may interact with this medicine? alcohol antihistamines isoniazid medicines for depression, anxiety, or psychotic disturbances medicines for sleep muscle relaxants naltrexone narcotic medicines (opiates) for pain phenobarbital ritonavir tramadol What if I miss a dose? If you miss a dose, take it as soon as you can. If it is almost time for your next dose, take only that dose. Do not take double or extra doses. Where should I keep my medicine? Keep out of the reach of children. This medicine can be abused. Keep your medicine in a safe place to protect it from theft. Do not share this medicine with anyone. Selling or giving away this medicine is dangerous and against the law. Store at room temperature between 15 and 30 degrees C (59 and 86 degrees F). Protect from light. Keep container tightly closed. Throw away any unused medicine after the expiration date. Discard unused medicine and used packaging carefully. Pets and children can be harmed if they find used or lost packages. What should I tell my health care provider before I take this medicine? They need to know if you have any of these conditions: brain tumor Crohn's disease, inflammatory bowel disease, or ulcerative colitis drink more than 3 alcohol-containing drinks per day drug abuse or addiction head injury heart or circulation problems kidney disease or problems going to the bathroom liver disease lung disease, asthma, or breathing problems an unusual or allergic reaction to acetaminophen, hydrocodone, other opioid analgesics, other medicines, foods, dyes, or preservatives or trying to get breast-feeding What should I watch for while using this medicine? Tell your doctor or health manager critical care if your pain does not go away, if it gets worse, or if you have new or a different type of pain. You may develop tolerance to the medicine. Tolerance means that you will need a higher dose of the medicine for pain relief. Tolerance is normal and is expected if you take the medicine for a long time. Do not suddenly stop taking your medicine because you may develop a severe reaction. Your body becomes used to the medicine. This does NOT mean you are addicted. Addiction is a behavior related to getting and using a drug for a non-medical reason. If you have pain, you have a medical reason to take pain medicine. Your doctor will tell you how much medicine to take. If your doctor wants you to stop the medicine, the dose will be slowly lowered over time to avoid any side effects. You may get drowsy or dizzy when you first start taking the medicine or change doses. Do not drive, use machinery, or do anything that may be dangerous until you know how the medicine affects you. Stand or sit up slowly. There are different types of narcotic medicines (opiates) for pain. If you take more than one type at the same time, you may have more side effects. Give your health care provider a list of all medicines you use. Your doctor will tell you how much medicine to take. Do not take more medicine than directed. Call emergency for help if you have problems breathing. The medicine will cause constipation. Try to have a bowel movement at least every 2 to 3 days. If you do not have a bowel movement for 3 days, call your doctor or health manager critical care. Too much acetaminophen can be very dangerous. Do not take Tylenol (acetaminophen) or medicines that contain acetaminophen with this medicine. Many non-prescription medicines contain acetaminophen. Always read the labels carefully. Cephalexin Monohydrate Oral tablet What is this medicine? CEPHALEXIN (sef a GAETANO in) is a cephalosporin antibiotic. It is used to treat certain kinds of bacterial infections It will not work for colds, flu, or other viral infections. How should I use this medicine? Take this medicine by mouth with a full glass of water. Follow the directions on the prescription label. This medicine can be taken with or without food. Take your medicine at regular intervals. Do not take your medicine more often than directed. Take all of your medicine as directed even if you think you are better. Do not skip doses or stop your medicine early. Talk to your dispatcher refinery regarding the use of this medicine in children. While this drug may be prescribed for selected conditions, precautions do apply. What side effects may I notice from receiving this medicine? Side effects that you should report to your doctor or health manager critical care as soon as possible: allergic reactions like skin rash, itching or hives, swelling of the face, lips, or tongue breathing problems pain or trouble passing urine redness, blistering, peeling or loosening of the skin, including inside the mouth severe or watery diarrhea unusually weak or tired yellowing of the eyes, skin Side effects that usually do not require medical attention (report to your doctor or health manager critical care if they continue or are bothersome): gas or heartburn genital or anal irritation headache joint or muscle pain nausea, vomiting What may interact with this medicine? probenecid some other antibiotics What if I miss a dose? If you miss a dose, take it as soon as you can. If it is almost time for your next dose, take only that dose. Do not take double or extra doses. There should be at least 4 to 6 hours between doses. Where should I keep my medicine? Keep out of the reach of children. Store at room temperature between 59 and 86 degrees F (15 and 30 degrees C). Throw away any unused medicine after the expiration date. What should I tell my health care provider before I take this medicine? They need to know if you have any of these conditions: kidney disease stomach or intestine problems, especially colitis an unusual or allergic reaction to cephalexin, other cephalosporins, penicillins, other antibiotics, medicines, foods, dyes or preservatives or trying to get breast-feeding What should I watch for while using this medicine? Tell your doctor or health manager critical care if your symptoms do not begin to improve in a few days. Do not treat diarrhea with over the counter products. Contact your doctor if you have diarrhea that lasts more than 2 days or if it is severe and watery. If you have diabetes, you may get a false-positive result for sugar in your urine. Check with your doctor or health manager critical care. Ibuprofen Oral tablet What is this medicine? IBUPROFEN (eye BYOO proe fen) is a non-steroidal anti-inflammatory drug (NSAID). It is used for dental pain, fever, headaches or migraines, osteoarthritis, rheumatoid arthritis, or painful monthly periods. It can also relieve minor aches and pains caused by a cold, flu, or sore throat. How should I use this medicine? Take this medicine by mouth with a glass of water. Follow the directions on the prescription label. Take this medicine with food if your stomach gets upset. Try to not lie down for at least 10 minutes after you take the medicine. Take your medicine at regular intervals. Do not take your medicine more often than directed. A special MedGuide will be given to you by the pharmacist with each prescription and refill. Be sure to read this information carefully each time. Talk to your dispatcher refinery regarding the use of this medicine in children. Special care may be needed. What side effects may I notice from receiving this medicine? Side effects that you should report to your doctor or health manager critical care as soon as possible: allergic reactions like skin rash, itching or hives, swelling of the face, lips, or tongue black or bloody stools, blood in the urine or in vomit breathing problems changes in vision chest pain general ill feeling or flu-like symptoms nausea or vomiting redness, blistering, peeling or loosening of the skin, including inside the mouth slurred speech or weakness on one side of the body stomach pain unexplained weight gain or swelling unusually weak or tired yellowing of eyes or skin Side effects that usually do not require medical attention (report to your doctor or health manager critical care if they continue or are bothersome): constipation or diarrhea dizziness gas or heartburn stomach upset What may interact with this medicine? Do not take this medicine with any of the following medications: cidofovir ketorolac methotrexate pemetrexed This medicine may also interact with the following medications: alcohol aspirin diuretics lithium other drugs for inflammation like prednisone warfarin What if I miss a dose? If you miss a dose, take it as soon as you can. If it is almost time for your next dose, take only that dose. Do not take double or extra doses. Where should I keep my medicine? Keep out of the reach of children. Store at room temperature between 15 and 30 degrees C (59 and 86 degrees F). Keep container tightly closed. Throw away any unused medicine after the expiration date. What should I tell my health care provider before I take this medicine? They need to know if you have any of these conditions: asthma cigarette smoker drink more than 3 alcohol containing drinks a day heart disease or circulation problems such as heart failure or leg edema (fluid retention) high blood pressure kidney disease liver disease stomach bleeding or ulcers an unusual or allergic reaction to ibuprofen, aspirin, other NSAIDS, other medicines, foods, dyes, or preservatives or trying to get breast-feeding What should I watch for while using this medicine? Tell your doctor or healthcare professional if your symptoms do not start to get better or if they get worse. This medicine does not prevent heart attack or stroke. In fact, this medicine may increase the chance of a heart attack or stroke. The chance may increase with longer use of this medicine and in people who have heart disease. If you take aspirin to prevent heart attack or stroke, talk with your doctor or health manager critical care. Do not take other medicines that contain aspirin, ibuprofen, or naproxen with this medicine. Side effects such as stomach upset, nausea, or ulcers may be more likely to occur. Many medicines available without a prescription should not be taken with this medicine. This medicine can cause ulcers and bleeding in the stomach and intestines at any time during treatment. Ulcers and bleeding can happen without warning symptoms and can cause . To reduce your risk, do not smoke cigarettes or drink alcohol while you are taking this medicine. You may get drowsy or dizzy. Do not drive, use machinery, or do anything that needs mental alertness until you know how this medicine affects you. Do not stand or sit up quickly, especially if you are an older patient. This reduces the risk of dizzy or fainting spells. This medicine can cause you to bleed more easily. Try to avoid damage to your teeth and gums when you brush or floss your teeth. You have been given the following additional information: Kidney Stone, Passed Pyelonephritis, Female (Adult) Hematuria Pyelonephritis, Female (Adult) Ondansetron Oral disintegrating tablet Hydrocodone Bitartrate, Acetaminophen Oral tablet Cephalexin Monohydrate Oral tablet Ibuprofen Oral tablet (Electronically signed by Pablo Briones Dr. 06/05/2016 9:34)
--- NOTE | 2016-06-05 09:35 | ED MAR SUMMARY ---
..... Medication Administration Record [facility] [address] [place] [address] Patient: ELIE HARGROVE Visit ID: [id number] 25y, F Weight: 60.7 kg Height/Length: 64 in BMI: 23 ALLERGIES: Adhesive Tape Start 08:05 06/04/2016 Zandra Atkins R.N. Medication Administered: IV NS (SALINE), Dose: IV Fluids over 4 hour(s), Rate: 500 mL/hr, Dispensed: 1000 mL bag, Site: #1 left forearm. Medication Ordered: IV NS : initial bolus none -, then 500 mL/hr for 4h (NOW); Routine. Given 08:15 06/04/2016 Zandra Atkins R.N. Medication Administered: TORADOL [IVP], Dose: 30 mg IVP over 2 minute(s), Site: #1 left forearm. Medication Ordered: Toradol IV 30 mg (NOW). Given 08:20 06/04/2016 Zandra Atkins R.N. Medication Administered: ATIVAN [IVP] (LORAZEPAM), Dose: 0.5 mg IVP over 2 minute(s), Site: #1 left forearm. Medication Ordered: Ativan IV 0.5 mg (NOW). Given 08:21 06/04/2016 Zandra Atkins R.N. Medication Administered: ZOFRAN [IVP] (ONDANSETRON HCL), Dose: 4 mg IVP over 2 minute(s), Site: #1 left forearm. Medication Ordered: Zofran IV 4 mg (NOW). Given 10:10 06/04/2016 Zandra Atkins R.N. Medication Administered: MORPHINE [IVP], Dose: 4 mg IVP over 2 minute(s), Site: #1 left forearm. Medication Ordered: Morphine IV 4 mg (once now. May repeat in 15 mintues for pain > 5/10 for total of 8 mg). Start 10:33 06/04/2016 Zandra Atkins R.N. Medication Administered: CEFTRIAXONE [IVPB], Dose: 1 gm IVPB over 15 minute(s), Rate: 200 mL/hr, Dispensed: 50 mL bag, Site: #1 left forearm. Medication Ordered: Ceftriaxone IV 1 gm/50mL (NOW).
--- NOTE | 2016-06-05 09:35 | ED MED RECONCILIATION SUMMARY ---
Patient: ELIE HARGROVE Medication Reconciliation Report [facility] VisitID: [id number] [place] [address] 25y, F Registration Date/Time: 06/04/2016 Weight: 60.7 kg Height/Length: 64 in. BMI: 23.0 ALLERGIES: Adhesive Tape The patient's Home Medications are listed below: CONTINUE TAKING THE FOLLOWING MEDICATIONS: Dextroamphetamine Sulfate Oral (10 mg) 1 tablet, BID Imitrex Oral, PRN, last dose: 0800, n relief Linzess Oral 1 tab prn , for constipation Methocarbamol Oral 500 mg, 3x a day, last dose: 1 week ago SEROquel Oral 200 mg, at bedtime The source(s) of the original Home Medication information: Not obtained. The following Medications were given to the patient in the Emergency Department: IV NS IV Fluids bolus 0, then 500 mL/hr, administered: 06/04/2016 8:05:00 AM Toradol [IVP] IVP 30 mg, administered: 06/04/2016 8:15:00 AM Ativan [IVP] IVP 0.5 mg, administered: 06/04/2016 8:20:00 AM Zofran [IVP] IVP 4 mg, administered: 06/04/2016 8:21:00 AM Morphine [IVP] IVP 4 mg, administered: 06/04/2016 10:10:00 AM Ceftriaxone [IVPB] IVPB bolus 0, then 1 gm 200 mL/hr, administered: 06/04/2016 10:33:00 AM The following Medications were prescribed to the patient: Zofran (orally disintegrating tablets) 4 mg: take 1 orally every 8 hours as needed for nausea and vomiting. Dispense ten (10). No refill. Substitution is permissible. -- Pablo Briones Dr. Allred 5 mg / 325 mg tablets: take 1 orally every 6 hours as needed for pain. Dispense twelve (12). No refill. Substitution is permissible. -- Pablo Briones Dr. Keflex 500 mg: take 1 capsule orally every 8 hours for 10 days. No refill. Substitution is permissible.(disp 30 caps) -- Pablo Briones Dr. Motrin 600 mg tablets: take 1 tablet orally every 6 hours as needed for pain, stiffness, swelling or fever. Dispense thirty (30). No refill. Substitution is permissible. -- Pablo Briones Dr.
--- NOTE | 2016-06-05 09:35 | ED MAR SUMMARY ---
..... Medication Administration Record [facility] [address] [address] Patient: ELIE HARGROVE Visit ID: [id number] 25y, F Weight: 60.7 kg Height/Length: 64 in BMI: 23 ALLERGIES: Adhesive Tape Start 08:05 06/04/2016 Zandra Atkins R.N. Medication Administered: IV NS (SALINE), Dose: IV Fluids over 4 hour(s), Rate: 500 mL/hr, Dispensed: 1000 mL bag, Site: #1 left forearm. Medication Ordered: IV NS : initial bolus none -, then 500 mL/hr for 4h (NOW); Routine. Given 08:15 06/04/2016 Zandra Atkins R.N. Medication Administered: TORADOL [IVP], Dose: 30 mg IVP over 2 minute(s), Site: #1 left forearm. Medication Ordered: Toradol IV 30 mg (NOW). Given 08:20 06/04/2016 Zandra Atkins R.N. Medication Administered: ATIVAN [IVP] (LORAZEPAM), Dose: 0.5 mg IVP over 2 minute(s), Site: #1 left forearm. Medication Ordered: Ativan IV 0.5 mg (NOW). Given 08:21 06/04/2016 Zandra Atkins R.N. Medication Administered: ZOFRAN [IVP] (ONDANSETRON HCL), Dose: 4 mg IVP over 2 minute(s), Site: #1 left forearm. Medication Ordered: Zofran IV 4 mg (NOW). Given 10:10 06/04/2016 Zandra Atkins R.N. Medication Administered: MORPHINE [IVP], Dose: 4 mg IVP over 2 minute(s), Site: #1 left forearm. Medication Ordered: Morphine IV 4 mg (once now. May repeat in 15 mintues for pain > 5/10 for total of 8 mg). Start 10:33 06/04/2016 Zandra Atkins R.N. Medication Administered: CEFTRIAXONE [IVPB], Dose: 1 gm IVPB over 15 minute(s), Rate: 200 mL/hr, Dispensed: 50 mL bag, Site: #1 left forearm. Medication Ordered: Ceftriaxone IV 1 gm/50mL (NOW).
== END 2016-06-04 10:30 | disposition home or self-care (01) ==
LOC: ED SRH 07:37
DX: N23 Unspecified renal colic (principal); N10 Acute pyelonephritis; N13.30 Unspecified hydronephrosis; N39.0 Urinary tract infection, site not specified; J44.9 Chronic obstructive pulmonary disease, unspecified; F17.210 Nicotine dependence, cigarettes, uncomplicated; Z79.899 Other long term (current) drug therapy
CPT/HCPCS: 90004; 90100; 90148; 90469; 91585; 92235; 92530; 92760; 92761; 92762; 92763; 92764; 92765; 92766; 92767; 93004; 93070; 95059